=== PATIENT | female | born 1970 | race Caucasian/White ===

== ENCOUNTER 2024-10-24 13:55 | Emergency (ER) | payer OTHER, SELFPAY ==
[2024-10-24 16:00] VITALS: BP 134/75
[2024-10-24 16:05] VITALS: BMI 32.3
--- NOTE | 2024-10-24 16:17 | ED.GENMED ---
History of Present Illness
General
Chief Complaint: Musculo-Skeletal Complaint
Source: patient
Exam Limitations: none
Time Seen by Provider: 10/24/24 15:47
Nursing documentation reviewed up to this point in time: agreed with
History of Present Illness
History of Present Illness:
Patient is a 54-year-old female who presents to the ER for evaluation. Patient reports last night she tripped and hit her knee twisted her right ankle and landed on her right lateral foot she is able to bear weight but has discomfort. Most of her
discomfort is in her right lateral foot mild discomfort in the ankle.
Past History
Past History
ED Past Medical History: None; Negative Asthma, HTN, Hypercholesterolemia or NIDDM
ED Past Surgical History: Tonsilectomy
Social History
Tobacco: Smoker
Alcohol: Occasional
Personal: Single (Common law marrage)
Living: with family
Review of Systems
Review of Systems
Allergies reviewed?: Yes
All Other Systems: ROS reviewed and negative except as documented in HPI and ROS
Constitutional: Reports no symptoms
Musculoskeletal: Reports other (Right knee, ankle, foot pain )
Skin: Reports no symptoms
Neurological: Reports no symptoms
Psychiatric: Reports no symptoms
Phy Exam
General Physical Exam
General Presentation: no apparent distress
General age: appears stated age
General Skin: warm and dry
General Habitus: normal
General Mental: alert
General Hydration: appears well hydrated
Neurological Exam
Neurological Exam: alert and oriented x3
Musculoskeletal Exam
Musculoskeletal Exam: other (Strong distal pulses to right lower extremity able to flex and extend knee no bony tenderness no obvious swelling to the knee or laxity. There is ecchymosis to right lateral foot patient is tender over this region, no
bony ankle tenderness)
Skin Exam
Skin Exam: normal color and warm/dry
Psychiatric Exam
Psychiatric Exam: normal mood/affect
Course
Orders/Labs/Results
Orders:
Orders
10/24/24 14:04
CR Ankle - Right Min 3 Views * Urgent
Comment:
Reason For Exam: fall
CR Foot - Right Min 3 Views Urgent
Comment:
Reason For Exam: fall
Knee, Right 4 or More Views [CR Knee- Right 4 Or More View*] Urgent
Comment:
Reason For Exam: fall
10/24/24 16:17
Sheldon Wrap Right-Treatment ONCE
Air Splint Right-Treatment ONCE
Cast Shoe Right-Treatment ONCE
Vital Signs
Initial and Last Documented VS:
Initial Vital Signs
Pulse Resp BP Pulse Ox
74 16 134/75 98
10/24/24 16:00 10/24/24 16:00 10/24/24 16:00 10/24/24 16:00
Last Documented Vital Signs
Pulse Resp BP Pulse Ox
74 16 134/75 98
10/24/24 16:00 10/24/24 16:00 10/24/24 16:00 10/24/24 16:00
MDM/Problems Addressed
Differential Diagnosis Includes:
Not limited to sprain strain contusion fracture
MDM/Problems Addressed:
Symptoms are consistent with contusion, mild ankle sprain no obvious fractures.
*Radiology
Radiology exam reviewed: radiology read reviewed
*Critical Care Note
Total Time (30-74mins, 75-104mins- exclusive of procedures): Not Applicable
ED Attending Note
-
Portions of this chart may have been created with voice recognition software.� Occasional wrong word or��sound alike� substitutions may have occurred due to the inherent limitations of voice recognition software.
Discharge Plan
Departure
Patient Disposition: Home (Routine Discharge)
Date of Disposition: 10/24/24
Time of Disposition: 16:18
Patient with high blood pressure during this ER visit?: Yes
Condition: Fair
Covid-19: Not Applicable
Discharge Problem:
Contusion of foot, Ankle sprain
Instructions: Contusion (DC), Sprain (DC)
Prescriptions:
No Action
ibuprofen [Advil] 200 MG tablet
400 mg PO PRN PRN (Reason: aches and pain)
cyclobenzaprine 10 MG tablet
10 mg PO TIDPRN PRN (Reason: Spasm) Qty: 9 0RF
bupropion HCl 150 MG tablet sustained-release 12 hr
150 mg PO BID
ondansetron HCl 4 MG tablet
4 mg PO Q6HPRN PRN (Reason: NAUSEA) Qty: 20 0RF
oxycodone 5 MG tablet
5 mg PO Q4HPRN PRN (Reason: severe pain when tolerating PO) 0RF
Referrals:
Yanni Humphrey PA-C [Family Provider] -
Activity Restrictions/Additional Instructions:
As discussed your x-rays are negative. You may wear Sheldon wrap air splint and cast shoe for support throughout the day. Limit weightbearing. Keep elevated as much as possible, you may continue to ice intermittently for the next 24 hours 20 minutes
at a time several times a day. May take ibuprofen for discomfort. Return if any worsening of symptoms. Follow-up with family doctor as needed.
Interventions
Interventions:
*Risk Screen - Suicide Last Done: 10/24/24 14:04
*General Assessment Last Done: 10/24/24 14:04
*Neglect/Abuse Screening Last Done: 10/24/24 14:04
*ED COVID-19 Vaccine History Last Done: 10/24/24 14:04
*Nursing Disposition Last Done: 10/24/24 16:37
ED-Musculoskeletal Assessment Last Done: 10/24/24 16:05
Discharge Date and Time
Discharge Date/Time: 10/24/24 16:49
Print Language: THAI
== END 2024-10-24 16:49 | disposition home or self-care (01) ==
LOC: EMR 13:55
PROVIDERS: EMERGENCY PHYSICIAN Emergency Medicine; FAMILY PHYSICIAN Physician Assistant Medical
DX: S90.31XA Contusion of right foot, initial encounter (principal); S93.401A Sprain of unspecified ligament of right ankle, initial encounter; W01.0XXA Fall on same level from slipping, tripping and stumbling without subsequent striking against object, initial encounter; X50.1XXA Overexertion from prolonged static or awkward postures, initial encounter; F17.200 Nicotine dependence, unspecified, uncomplicated
CPT/HCPCS: 99283; 73564; 73610; 73630

== ENCOUNTER 2024-12-25 16:03 | Emergency (ER) | payer OTHER, SELFPAY ==
--- NOTE | 2024-12-25 17:55 | ED.MUSCINJ ---
HPI-Injury
General
Chief Complaint: Musculo-Skeletal Complaint
Source: patient
Exam Limitations: none
Time Seen by Provider: 12/25/24 17:40
History of Present Illness-Injury
Initial Injury comments:
54-year-old female presents complaining of right buttock right posterior thigh and right hip pain. She slipped on the floor last evening and did a split where her right slipped out in front of her. She felt a pop. She has been having difficulty
ambulating since then.
Past History
Past History
ED Past Medical History: None; Negative Asthma, HTN, Hypercholesterolemia or NIDDM
ED Past Surgical History: Tonsilectomy
Social History
Tobacco: Smoker
Alcohol: Occasional
Personal: Single (Common law marrage)
Living: with family
Phy Exam
Physical Exam
Physical Exam:
General: Well-appearing female in no acute respiratory distress
HEENT: Normocephalic atraumatic
Musculoskeletal exam: The right posterior buttock is tender as is the right lateral and anterior hip. No deformity. Patient has trouble straightening her leg secondary to pain in her thigh. No significant deformity
Vascular: 2+ DP pulse right foot
Neurologic: Good sensation right leg
Injury Course
Orders/Labs/Results
Orders:
Orders
12/25/24 17:51
Diazepam [Valium] 5 mg PO NOW STA
Ketorolac [Toradol] 30 mg IM NOW STA
CR Femur - Right Min 2 Vw Urgent
Comment:
Reason For Exam: fall
CR Pelvis - 1 Or 2 Views Urgent
Comment:
Reason For Exam: fall
MDM/Problems Addressed
Differential Diagnosis Includes:
Right leg and hip pain after overstretching incidentally. Consider hamstring strain versus pelvic fracture x-rays of the pelvis and femur pending.
*Pulse Oximetry
SaO2: 97
Oxygen Mode of Delivery: Room air
Patient hypoxic: no
*Critical Care Note
Total Time (30-74mins, 75-104mins- exclusive of procedures): Not Applicable
Update Note
Update Note:
X-ray of the pelvis and right femur negative for acute bony abnormality. Suspect hamstring strain. Will provide crutches advised muscle relaxers and anti-inflammatories. Stable for discharge with follow-up
ED Attending Note
-
Portions of this chart may have been created with voice recognition software.� Occasional wrong word or��sound alike� substitutions may have occurred due to the inherent limitations of voice recognition software.
Discharge Plan
Departure
Patient Disposition: Home (Routine Discharge)
Date of Disposition: 12/25/24
Time of Disposition: 20:11
Patient with high blood pressure during this ER visit?: No
Discharge Problem:
Hamstring strain
Instructions: Muscle and Bone Pain (DC)
Prescriptions:
New
diazepam [Valium] 5 mg tablet
5 mg PO BID PRN (Reason: muscle spasm) Qty: 10 0RF
ibuprofen 600 mg tablet
600 mg PO TID PRN (Reason: Pain) Qty: 14 0RF
No Action
ibuprofen [Advil] 200 MG tablet
400 mg PO PRN PRN (Reason: aches and pain)
cyclobenzaprine 10 MG tablet
10 mg PO TIDPRN PRN (Reason: Spasm) Qty: 9 0RF
bupropion HCl 150 MG tablet sustained-release 12 hr
150 mg PO BID
ondansetron HCl 4 MG tablet
4 mg PO Q6HPRN PRN (Reason: NAUSEA) Qty: 20 0RF
oxycodone 5 MG tablet
5 mg PO Q4HPRN PRN (Reason: severe pain when tolerating PO) 0RF
Referrals:
Yanni Humphrey PA-C [Family Provider, Family Practice]
Activity Restrictions/Additional Instructions:
Rest. Use warm compresses to the leg. Use crutches for support when ambulating. He has muscle relaxers and anti-inflammatories as needed. Return here if worse otherwise follow-up with your doctor
Interventions
Interventions:
ED-Musculoskeletal Assessment Last Done: 12/25/24 17:21
Discharge Date and Time
Print Language: MALDIVIAN
[2024-12-25] MEDS: VALIUM 5 MG PO (17:58)
[2024-12-25] MEDS: TORADOL 30 MG IM (17:59)
[2024-12-25] MEDS: PERCOCET 5/325 1 TABLET PO (20:50)
[2024-12-25 21:34] VITALS: BP 138/70
== END 2024-12-25 21:38 | disposition home or self-care (01) ==
LOC: EMR 16:03
PROVIDERS: EMERGENCY PHYSICIAN Emergency Medicine; FAMILY PHYSICIAN Physician Assistant Medical
DX: S76.811A Strain of other specified muscles, fascia and tendons at thigh level, right thigh, initial encounter (principal); W01.0XXA Fall on same level from slipping, tripping and stumbling without subsequent striking against object, initial encounter
CPT/HCPCS: 96372; 99284; 72170; 73552